=== PATIENT | male | born 1965 | race Caucasian/White ===

== ENCOUNTER 2022-05-07 10:31 | Inpatient (IN) | payer OTHER ==
[~2022-05-07] VITALS: Ht 182.9 cm; Wt 111.6 kg
[2022-05-07] MEDS ORDERED: METF-881 PO (11:18)
[2022-05-07] MEDS ORDERED: LISI40TA13 PO (11:18)
[2022-05-07] MEDS ORDERED: SIMV-46 PO (11:18)
[2022-05-07] MEDS ORDERED: MULT-447 PO (11:18)
--- NOTE | 2022-05-07 11:20 | NUR ---
ESTABLISHED IV 18G RIGHT AC. BLOOD DRAWN AND SENT TO LAB.
--- NOTE | 2022-05-07 11:34 | NUR ---
COVID SWAB COLLECTED AND SENT TO LAB.
[2022-05-07 11:45] LABS: BASOPHILS # (AUTO) 0.1 K/uL (0.0-0.2); BASOPHILS % (AUTO) 0.8 % (0.0-2.0); EOSINOPHILS % (AUTO) 2.4 % (0.0-6.0); HEMATOCRIT 47 % (39-51); LYMPHOCYTES # (AUTO) 2.8 K/uL (0.8-4.8); LYMPHOCYTES % (AUTO) 42.9 % (20.0-44.0); MEAN CORPUSCULAR HGB CONC 32 g/dl (31.0-36.0); MEAN CORPUSCULAR VOLUME 89 fL (80-96); MONOCYTES # (AUTO) 0.6 K/uL (0.1-1.30); MONOCYTES % (AUTO) 8.5 % (2.0-12.0); NEUTROPHILS # (AUTO) 2.9 K/uL (1.8-8.9); NEUTROPHILS % (AUTO) 45.4 % (43.0-81.0); PLATELET COUNT (AUTO) 207 K/uL (150-450); RED BLOOD CELL COUNT(AUTO) 5.25 MIL/uL (4.5-6.0); WHITE BLOOD COUNT (AUTO) 6.5 K/uL (4.3-11.0)
[2022-05-07 11:50] LABS: CALCIUM, SERUM 8.9 mg/dL (8.5-10.1); CARBON DIOXIDE 26 mmol/L (21-32); CHLORIDE 106 mmol/L (98-107); CREATININE 1.2 mg/dL (0.6-1.3); GLUCOSE 127 mg/dL (74-106); POTASSIUM 4.3 mmol/L (3.5-5.1); SODIUM SERUM 139 mmol/L (136-145); UREA NITROGEN, BLOOD 12 mg/dL (7-18)
[2022-05-07 11:56] LABS: ALANINE AMINOTRANSFERASE 38 U/L (12-78); ALBUMIN 3.8 g/dL (3.4-5.0); ALKALINE PHOSPHATASE 62 U/L (46-116); ASPARTATE AMINOTRANSFERASE 17 U/L (15-37); BILIRUBIN,DIRECT 0.1 mg/dL (0.0-0.2); BILIRUBIN,TOTAL 0.3 mg/dL (0.2-1.0); TOTAL PROTEIN, SERUM 7.1 g/dL (6.4-8.2)
[2022-05-07] MEDS ORDERED: DILTIAZEM HCL 50 MG IV IV ONE (12:00)
[2022-05-07] MEDS ORDERED: DILTIAZEM HCL 25 MG IV ONE (12:06)
[2022-05-07] MEDS ORDERED: MAG HYDROX/AL HYDROX/SIMETH 30 ML UDC PO PRN (14:00)
[2022-05-07] MEDS ORDERED: MAGNESIUM HYDROXIDE 30 ML UDC PO PRN (14:00)
[2022-05-07] MEDS ORDERED: Z GUARD REMEDY 4 OZ OINT TP PRN (14:00)
[2022-05-07] MEDS ORDERED: ZOLPIDEM TARTRATE 5 MG TABLET PO PRN (14:00)
[2022-05-07] MEDS ORDERED: AMIODARONE 450 MG in IV D5W 241 ML IV PRN (14:00)
[2022-05-07] MEDS ORDERED: AMIODARONE 150 MG in IV D5W 100 ML IV ONE (14:00)
[2022-05-07] MEDS ORDERED: ONDANSETRON HCL/PF 4 MG/2 ML VIAL IVP PRN (14:00)
[2022-05-07] MEDS ORDERED: ENOXAPARIN SODIUM 40 MG/0.4 ML DISP.SYRIN SQ SCH (14:00)
[2022-05-07] MEDS ORDERED: ACETAMINOPHEN 325 MG TABLET PO PRN (14:00)
--- NOTE | 2022-05-07 14:03 | NUR ---
report given to Arlet HORN to continue care.
--- NOTE | 2022-05-07 15:00 | NUR ---
ADMISSION NOTE Received patient from ER A/O x 4 able to make needs known. On room air, breathing evenly and unlabored. No SOB or s/s of distress noted. IV access on RAC #18 SL. Patient oriented to room and how to use the call light. Vital signs taken, stable and recorded. External monitor attached, showing Sinus ryhthm, HR 65. No c/o pain/discomfort at this time. Thorough skin assessment not done as patient refused and states his skin is intact. Safety precautions in place: bed in low, locked position; siderails up x2; call light within reach. Will continue to monitor.
--- NOTE | 2022-05-07 15:59 | NUR ---
RN NOTES AMIODARONE DRIP NOT GIVEN, DISCONTINUED BY HIEN ESQUEDA GRADUATE ADVISOR VIA TEXT MESSAGE.
[2022-05-07 16:00] VITALS: BP 128/85
[2022-05-07] MEDS ORDERED: SIMVASTATIN 20 MG TABLET PO SCH (18:00)
--- NOTE | 2022-05-07 18:57 | NUR ---
CLOSING NOTE Patient awake in bed, A/O x 4 able to make needs known, cooperative. On room air, breathing evenly and unlabored. No SOB or s/s of distress noted. IV access on RAC #18 SL. External monitor attached, showing Sinus ryhthm, HR 68. No c/o pain/discomfort at this time. Safety precautions in place: bed in low, locked position; siderails up x2; call light within reach. W
--- NOTE | 2022-05-07 19:15 | NUR ---
RN opening notes Received Pt from morning nurse. Pt is laying in bed comfortably watching TV. Pt is alert and orientedX4. On room air. No SOB. No S/S of distress noted. Tele monitor showed SR hr 70. IV site at RAC# 18 is clean, intact and flushes well. Pt is able to ambulates with a steady gait. Safety precautions is maintained. Bed at low position, brakes locked, side rails upX2, hob elevated, urinal at the bed side and call light is within reach. will continue to monitor.
[2022-05-07 20:00] VITALS: BP_SYST 147; BP_DIAS 91; BP_DIAS 97
[2022-05-07 21:01] VITALS: BP 147/91
[2022-05-08] VITALS: BP 131/77
[2022-05-08 04:00] VITALS: BP 126/87
[2022-05-08 05:31] VITALS: BP 126/87
[2022-05-08 06:11] LABS: BASOPHILS % (AUTO) 0.7 % (0.0-2.0); HEMATOCRIT 43 % (39-51); HEMOGLOBIN 14.1 g/dL (13.5-17.5); LYMPHOCYTES # (AUTO) 2.2 K/uL (0.8-4.8); LYMPHOCYTES % (AUTO) 35.7 % (20.0-44.0); MEAN CORPUSCULAR HGB CONC 33 g/dl (31.0-36.0); MEAN CORPUSCULAR VOLUME 88 fL (80-96); MONOCYTES # (AUTO) 0.6 K/uL (0.1-1.30); MONOCYTES % (AUTO) 9.8 % (2.0-12.0); NEUTROPHILS # (AUTO) 3.1 K/uL (1.8-8.9); NEUTROPHILS % (AUTO) 50.8 % (43.0-81.0); PLATELET COUNT (AUTO) 183 K/uL (150-450); RED BLOOD CELL COUNT(AUTO) 4.94 MIL/uL (4.5-6.0); WHITE BLOOD COUNT (AUTO) 6.1 K/uL (4.3-11.0)
[2022-05-08 06:24] LABS: ALBUMIN 3.6 g/dL (3.4-5.0); BILIRUBIN,TOTAL 0.5 mg/dL (0.2-1.0); CALCIUM, SERUM 9.1 mg/dL (8.5-10.1); CREATININE 1.2 mg/dL (0.6-1.3); MAGNESIUM 2.2 mg/dL (1.8-2.4); PHOSPHORUS 4.3 mg/dL (2.5-4.9); POTASSIUM 4.9 mmol/L (3.5-5.1); TOTAL PROTEIN, SERUM 6.9 g/dL (6.4-8.2)
--- NOTE | 2022-05-08 06:42 | NUR ---
RN closing notes Pt is resting in bed comfortably. Pt is alert and orientedX4. On 2 L NC. No SOB. No S/S of distress noted. Vs is stable. Tele monitor showed SR/Sbrady hr at 58. IV site at RAC# 18 is clean, intact and flushes well. Kept Pt clean, dry and comfortable. Safety precautions is maintained. Bed at low position, brakes locked, side rails upX2, hob elevated, urinal at the bed side and call light is within reach. Will endorse to am nurse for BONIFACIO.
[2022-05-08 07:00] VITALS: BP 140/83
--- NOTE | 2022-05-08 07:10 | NUR ---
RN opening notes Received Pt awake, A/OX4. On room air. No SOB. No S/S of distress noted. Tele monitor showed SR hr 73. IV site at RAC# 18 is clean, intact and flushes well. Pt is able to ambulate with a steady gait. Safety precautions is maintained. Bed at low position, brakes locked, side rails upX2, hob elevated, urinal at the bed side and call light is within reach. will continue to monitor the patient.
[2022-05-08] MEDS ORDERED: MULTIVIT W/MINERALS 1 TAB TABLET PO SCH (09:00)
[2022-05-08] MEDS ORDERED: PANTOPRAZOLE 40 MG VIAL IV SCH (09:00)
[2022-05-08] MEDS ORDERED: CARVEDILOL 6.25 MG TABLET PO SCH (09:00)
[2022-05-08] MEDS ORDERED: LISINOPRIL (20MG) 20 MG TABLET PO SCH (09:00)
[2022-05-08] MEDS ORDERED: APIXABAN 5 MG TABLET PO SCH (09:00)
[2022-05-08 11:36] VITALS: BP 129/80
[2022-05-08] MEDS ORDERED: EMPA10TA PO (15:32)
[2022-05-08] MEDS ORDERED: APIX5TAB PO (15:32)
[2022-05-08] MEDS ORDERED: CARV6.252 PO (15:32)
[2022-05-08 16:38] VITALS: BP 139/98
--- NOTE | 2022-05-08 17:00 | NUR ---
ARCHITECTURAL DESIGN PROFESSORCOUNTER WEIGHER NOTES; PATIENT DISCHARGED TO HOME IN STABLE CONDITION A/O X4 ABLE TO MAKE NEEDS KNOWN. PATIENT'S BELONGINGS ACCOUNTED FOR. PATIENT WAS GIVEN DISCHARGE INSTRUCTIONS BOTH ORALLY AND IN WRITING. PATIENT VERBALIZED UNDERSTANDING. IV ACCESS REMOVED, CATHETER TIP C/D/I, PRESSURE DRESSING APPLIED, NO SIGNS OF BLEEDING NOTED. PATIENT LEFT IN STABLE CONDITION ACCOMPANIED BY CLERICAL TRANSCRIBER UNTIL [facility] EXIT. CHARGE NURSE AWARE OF THE DISCHARGE.
== END 2022-05-08 17:00 | disposition home or self-care (01) | DRG 310 ==
LOC: ER 10:36 → TELE 13:59
PROVIDERS: ADMIT Nurse Practitioner Acute Care; ATTEND Nurse Practitioner Acute Care
DX: I48.91 Unspecified atrial fibrillation (principal); I10 Essential (primary) hypertension; E11.9 Type 2 diabetes mellitus without complications; E78.5 Hyperlipidemia, unspecified; Z68.33 Body mass index [BMI] 33.0-33.9, adult; Z20.822 Contact with and (suspected) exposure to COVID-19; Z79.899 Other long term (current) drug therapy; Z79.84 Long term (current) use of oral hypoglycemic drugs; G47.33 Obstructive sleep apnea (adult) (pediatric); E66.01 Morbid (severe) obesity due to excess calories; Z82.49 Family history of ischemic heart disease and other diseases of the circulatory system
CPT/HCPCS: 36415; 71045-TC; 80048-TC; 80053-TC; 80061-TC; 80076-TC; 83735-TC; 84100-TC; 84484-TC; 85025-TC; 87081-TC; 93307-TC; A4223; C9113; C9803; G0378; J0282; J1650; J3490; J7060